=== PATIENT | male | born 1995 | race Caucasian/White ===

== ENCOUNTER 2017-07-29 20:04 | Emergency (ER) | payer SELFPAY ==
[2017-07-29] MEDS ORDERED: methylPREDNISolone 125 MG* 2 ML VIAL IV ONE (20:14)
[2017-07-29 21:07] VITALS: BP 113/50
--- NOTE | 2017-07-29 21:32 | ED ---
Mattie Noyola Gabriel, scribed for Lalo Fairbanks MD on 07/29/17 at 2020 . Allergic Reaction/Systemic - HPI Summary HPI Summary: his patient is a 22 year old M BIBA to [facility] with a chief complaint of an allergic reaction that began an hour ago. Pt was eating [place] food and was unware that it contained nuts. Patient denies itching. Pt was given Epipen, Benadryl and Duoneb by EMS. After these treatment pt states he is feeling much better - History of Current Complaint Chief Complaint: EDAllergicReaction Time Seen by Provider: 07/29/17 20:10 Hx Obtained From: Patient Onset/Duration: Started hours ago, Still Present, Resolved Timing: Constant Severity Initially: Severe Severity Currently: Mild Pain Intensity: 0 Pain Scale Used: 0-10 Numeric Character: Swelling Associated Signs And Symptoms: Positive: Negative - itching - Allergies/Home Medications Allergies/Adverse Reactions: Allergies Allergy/AdvReac Type Severity Reaction Status Date / Time nut - unspecified Allergy Anaphylatic Verified 07/29/17 20:34 Shock PMH/Surg Hx/FS Hx/Imm Hx Endocrine/Hematology History: Denies: Hx Anticoagulant Therapy, Hx Blood Disorders, Hx Blood Transfusions, Hx Bone Marrow Disease, Hx Diabetes Respiratory History: Reports: Hx Asthma History: Denies: Hx Acute Renal Failure, Hx Benign Prostatic Hyperplasia Sensory History: Reports: Hx Contacts or Glasses Opthamlomology History: Reports: Hx Contacts or Glasses - Surgical History Surgery Procedure, Year, and Place: none Infectious Disease History: No Infectious Disease History: Denies: Traveled Outside the [place] in Last 30 Days - Family History Known Family History: Negative: Cardiac Disease, Hypertension, Diabetes, Renal Disease, Respiratory Disease, Seizure Disorder, Blood Disorder - Social History Occupation: Student Lives: Dormitory/Roommates Alcohol Use: Occasionally Substance Use Type: Reports: None Smoking Status (MU): Never Smoked Tobacco Review of Systems Positive: Fever - redness and swelling Positive: Other All Other Systems Reviewed And Are Negative: Yes Physical Exam - Summary Physical Exam Summary: VITAL SIGNS: Reviewed. GENERAL: Patient is a well-developed and nourished MALE who is lying comfortable in the stretcher. Patient is not in any acute respiratory distress. HEAD AND FACE: No signs of trauma. No ecchymosis, hematomas or skull depressions. No sinus tenderness. Face is red EYES: PERRLA, EOMI x 2, No injected conjunctiva, no nystagmus. EARS: Hearing grossly intact. Ear canals and tympanic membranes are within normal limits. MOUTH: Oropharynx within normal limits. NECK: Supple, trachea is midline, no adenopathy, no JVD, no carotid bruit, no c- spine tenderness, neck with full ROM. CHEST: Symmetric, no tenderness at palpation LUNGS: Clear to auscultation bilaterally. No wheezing or crackles. CVS: Regular rate and rhythm, S1 and S2 present, no murmurs or gallops appreciated. ABDOMEN: Soft, non-tender. No signs of distention. No rebound no guarding, and no masses palpated. Bowel sounds are normal. EXTREMITIES: FROM in all major joints, no edema, no cyanosis or clubbing. NEURO: Alert and oriented x 3. No acute neurological deficits. Speech is normal and follows commands. SKIN: Dry and warm Triage Information Reviewed: Yes Vital Signs On Initial Exam: Initial Vitals Temp Pulse Resp BP Pulse Ox 100.4 F 86 16 141/62 99 07/29/17 20:07 07/29/17 20:07 07/29/17 20:07 07/29/17 20:07 07/29/17 20:07 Vital Signs Reviewed: Yes Diagnostics - Vital Signs Vital Signs Temp Pulse Resp BP Pulse Ox 07/29/17 20:07 100.4 F 86 16 141/62 99 - Laboratory Lab Statement: Any lab studies that have been ordered have been reviewed, and results considered in the medical decision making process. Re-Evaluation - Re-Evaluation First Eval Re-Evaluation Time: 21:15 Change: Improved Comment: Pt is feeling better. Allergic Reaction Course/Dx - Course Assessment/Plan: This patient is a 22 year old M BIBA to [facility] with a chief complaint of an allergic reaction that began an hour ago. Pt was eating [place] food and was unware that it contained nuts. Patient denies itching. Pt was given Epipen, Benadryl and Duoneb by EMS. After these treatment pt states he is feeling much better. In the ED course the patient was given solu medrol. Dx allergic reaction. Patient will be discharged with prescription for prednisone and [facility] The patient is agreeable with this plan. - Diagnoses Provider Diagnoses: Allergic reaction Discharge - Discharge Plan Condition: Stable Disposition: HOME Prescriptions: predniSONE TAB* [Deltasone TAB*] 40 mg PO DAILY #6 tab Patient Education Materials: Food Allergy (ED) Referrals: [facility] - Robert SAVAGE [Primary Care Provider] - 3 Days Additional Instructions: RETURN TO EMERGENCY DEPARTMENT FOR ANY NEW OR WORSENING SYMPTOMS The documentation as recorded by the Mattie rodriguez Gabriel accurately reflects the service I personally performed and the decisions made by , Lalo Fairbanks MD.
== END 2017-07-29 21:22 | disposition home or self-care (01) ==
LOC: ED 20:04
DX: T78.40XA Allergy, unspecified, initial encounter (principal); X58.XXXA Exposure to other specified factors, initial encounter; Z91.018 Allergy to other foods
CPT/HCPCS: 99282; J2930